=== PATIENT | male | born 1995 | race Caucasian/White ===

== ENCOUNTER 2018-02-10 15:53 | Emergency (ER) | payer OTHER ==
[2018-02-10 17:43] VITALS: BP 138/74
--- NOTE | 2018-02-10 18:31 | RAD ---
HISTORY: Right lower leg pain, subacute trauma COMPARISONS: None VIEWS: 4, Frontal and lateral views of the right foreleg FINDINGS: BONE DENSITY: Normal. BONES: There is no displaced fracture. JOINTS: There is no arthropathy. ALIGNMENT: There is no dislocation. SOFT TISSUES: Unremarkable. OTHER FINDINGS: None. IMPRESSION: NO ACUTE OSSEOUS INJURY. IF SYMPTOMS PERSIST, RECOMMEND REPEAT IMAGING.
--- NOTE | 2018-02-10 18:54 | UC ---
Lower Extremity/Ankle HPI - HPI Summary HPI Summary: 22 y/o male presents to the urgent care c/o RT lower leg pain and lump on and off for the past 3 months. 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 He works standing up all day lifting things and he practice fighting 3X/week. For the past week the lump has swollen and is red. Pain is dull 2/10. Pt dandies numbness or tingling sensation, calf pain, SOB, chest pain, abdominal pain, N/V/D - History of Current Complaint Chief Complaint: UCLowerExtremity Stated Complaint: RIGHT LEG COMPLAINT Time Seen by Provider: 02/10/18 18:47 Hx Obtained From: Patient Onset/Duration: Sudden Onset, Lasting Weeks - 3 months, Still Present, Worse Since - last week Severity Initially: Moderate Severity Currently: Mild Pain Intensity: 4 Pain Scale Used: 0-10 Numeric Aggravating Factor(s): Standing, Ambulation Alleviating Factor(s): Rest, Elevation, Ice Able to Bear Weight: Yes - Risk Factors Gout Risk Factors: Negative DVT Risk Factors: Negative Septic Arthritis Risk Factor: Negative - Allergies/Home Medications Allergies/Adverse Reactions: Allergies Allergy/AdvReac Type Severity Reaction Status Date / Time amoxicillin [From Augmentin] Allergy Rash Verified 02/10/18 17:43 clavulanic acid Allergy Rash Verified 02/10/18 17:43 [From Augmentin] PMH/Surg Hx/FS Hx/Imm Hx Previously Healthy: Yes - Pt denies PMHX - Surgical History Surgical History: Yes Surgery Procedure, Year, and Place: Open heart age 4 - Family History Known Family History: Positive: None - Pt denies FMHX - Social History Occupation: Employed Full-time Lives: With Family Alcohol Use: Weekly Substance Use Type: None Smoking Status (MU): Never Smoked Tobacco Review of Systems Constitutional: Negative Skin: Bruising - RT lower leg swelling and mild bruising Eyes: Negative ENT: Negative Respiratory: Negative Cardiovascular: Negative Gastrointestinal: Negative Genitourinary: Negative Motor: Negative Neurovascular: Negative Musculoskeletal: Other: - RT lower leg pain Neurological: Negative Psychological: Negative Is Patient Immunocompromised?: No All Other Systems Reviewed And Are Negative: Yes Physical Exam - Summary Physical Exam Summary: Vital Signs Reviewed: Yes Appearance: Well-Appearing, Well-Nourished, male sitting in the examining table w/o any apparent pain distress. Eyes: Positive: Conjunctiva Clear - PERRLA< DEN, fundi grossly WNL ENT: Positive: Normal ENT inspection, Hearing grossly normal, Pharynx normal, TMs normal, Uvula midline Neck: Positive: Supple, Nontender, No Lymphadenopathy Respiratory: Positive: Chest non-tender, Lungs clear, Normal breath sounds, No respiratory distress Cardiovascular: Positive: RRR, No Murmur, Pulses Normal, Brisk Capillary Refill Abdomen Description: Positive: Nontender, No Organomegaly, Soft. Negative: CVA Tenderness (R), CVA Tenderness (L) Bowel Sounds: Positive: Present Extremities: R extremity with/without deformity or asymmetry when compared to the L. Mild soft tissue swelling w/ mild bruising, tender to palpation around the mid covarrubias of Rt lower leg about 2.0cm x 1.0cm in size. No overlying erythema , warmth, Mild abrasion around the same area. No palpable cords or evidence of thrombophlebitis. FROM of Rt lower leg, FROM RT knee. No evidence of gangrene or compartment syndrome. Medial thigh is without soft tissue swelling or tender to palpation. Negative Homans sign. No proximal lymphangitis or lymphadenopathy. Neurological Exam: Normal Psychological Exam: Normal Skin Exam: Normal Triage Information Reviewed: Yes Vital Signs: Initial Vital Signs Temp 98.0 F 02/10/18 17:39 Pulse 117 02/10/18 17:39 Resp 15 02/10/18 17:39 BP 138/74 02/10/18 17:39 Pulse Ox 100 02/10/18 17:39 Lower Extremity Course/Dx - Course Course Of Treatment: 22 y/o male presents to the urgent care c/o RT lower leg pain and lump on and off for the past 3 months. 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 He works standing up all day lifting things and he practice fighting 3X/week. For the past week the lump has swollen and is red. Pain is dull 2/10. Pt dandies numbness or tingling sensation, calf pain, SOB, chest pain, abdominal pain, N/V/D. Hx obtained. Pt w / Mild soft tissue swelling w/ mild bruising, tender to palpation around the mid covarrubias of Rt lower leg about 2.0cm x 1.0cm in size on examination. RT lower extremity X-ray ordered: negative for any osseous injury. Pt Rx Ibuprofen PO for pain and swelling and Advised RICE, , If not improvement of symptoms to f/ u with Orthopedic DR referral for further evaluation and treatment in 1 week.Stronly advised to stop trainning for 1 week or until symptoms resolve. Pt understood and agreed with D/C instructions - Differential Dx/Diagnosis Differential Diagnosis/HQI/PQRI: Contusion, Fracture (Closed), Sprain, Strain, Tendonitis Provider Diagnoses: 1- Acute RT lower leg pain s/p injury. 2-RT lower leg contusion Discharge - Sign-Out/Discharge Documenting (check all that apply): Discharge - Discharge Plan Condition: Stable Disposition: HOME Prescriptions: Ibuprofen TAB* [Motrin TAB* 600 MG] 600 mg PO Q6H PRN #30 tab PRN Reason: Pain Patient Education Materials: Contusion in Adults (ED), Leg Pain (ED) Forms: *Work Release Referrals: [facility] REFERRAL [Outside] - 1 Week Augusto Davis MD [Medical Doctor] - 1 Week Additional Instructions: 1-Please take medications as directed after meals to alleviate pain and swelling. 2-Please apply ice, keep your leg immobilized with the Jesus bandage. Avoid strenuous exercise or standing for long periods of time. Avoid practice for 1 week. 3- Please f/u with your PCP or Othopedic DR Davis in 1 week if not improvement of symptoms for further evaluation and treatment. - Billing Disposition and Condition Condition: STABLE Disposition: HOME
== END 2018-02-10 19:23 | disposition home or self-care (01) ==
LOC: UCCORT 15:53
DX: M79.662 Pain in left lower leg (principal); S80.11XA Contusion of right lower leg, initial encounter; W51.XXXA Accidental striking against or bumped into by another person, initial encounter; Z88.8 Allergy status to other drugs, medicaments and biological substances; Z88.0 Allergy status to penicillin; Y93.75 Activity, martial arts; Y92.9 Unspecified place or not applicable
CPT/HCPCS: 99201; G0463